=== PATIENT | female | born 1960 | race Asian ===

== ENCOUNTER 2018-12-11 09:08 | Emergency (ER) | payer BC, OTHER ==
[2018-12-11] MEDS ORDERED: Cyclobenzaprine 10 MG TAB ONE (11:23)
[2018-12-11] MEDS ORDERED: Ketorolac Tromethamine 30 MG/ML VIAL ONE (11:23)
--- NOTE | 2018-12-11 11:57 | RAD ---
CHEST TWO VIEWS: History: Chest injury. Comparison: 12-25-16 FINDINGS: Cardiac silhouette is unremarkable. Pulmonary vasculature is slightly engorged. Wide spread radicular nodular interstitial thickening and prominence are similar in appearance to the previous exam. Media stinum is midline with aortic calcification. No confluent airspace consolidation, pneumothorax or ple ural fluid are apparent. IMPRESSION: 1. Widespread interstitial coarsening is stable. 2. Atherosclerosis. 3. No evidence of pneumothorax or other active cardiopulmonary abnormalities. POS: C
== END 2018-12-11 11:55 | disposition home or self-care (01) ==
LOC: ERS 09:08
DX: S20.211A Contusion of right front wall of thorax, initial encounter (principal); E11.9 Type 2 diabetes mellitus without complications; F17.210 Nicotine dependence, cigarettes, uncomplicated; Z79.899 Other long term (current) drug therapy; Z79.84 Long term (current) use of oral hypoglycemic drugs; Z79.82 Long term (current) use of aspirin; W01.0XXA Fall on same level from slipping, tripping and stumbling without subsequent striking against object, initial encounter
CPT/HCPCS: 71046; 93005; 96372; J1885

== ENCOUNTER 2019-10-05 08:58 | Outpatient (CLI) | payer BC ==
--- NOTE | 2019-10-05 09:21 | RAD ---
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 COMPARISON: 12/11/2018 FINDINGS: Heart: Normal cardiac silhouette Aorta: Unremarkable Pulmonary vessels: Normal Costophrenic angles: Costophrenic angles are clear. Lungs: No masses or consolidation. Chronic changes in the lung parenchyma. Pneumothorax: No pneumothorax Osseous structures: No osseous abnormalities IMPRESSION: No acute cardiopulmonary process.
== END 2019-10-05 08:59 | disposition home or self-care (01) ==
LOC: BICRAD 08:58
PROVIDERS: ATTEND Physician Assistant
DX: L40.0 Psoriasis vulgaris (principal); R76.11 Nonspecific reaction to tuberculin skin test without active tuberculosis
CPT/HCPCS: 71046

== ENCOUNTER 2021-06-01 12:18 | Outpatient (CLI) | payer BC | END 2021-06-01 12:19 | disposition home or self-care (01) | LOC: BICRAD 12:18 | PROVIDERS: ATTEND Internal Medicine | DX: R05 Cough (principal); F17.200 Nicotine dependence, unspecified, uncomplicated; R91.8 Other nonspecific abnormal finding of lung field | CPT/HCPCS: 71046 ==

== ENCOUNTER 2022-03-30 11:33 | Outpatient (CLI) | payer BC | END 2022-03-30 11:34 | disposition home or self-care (01) | LOC: BICMAMMO 11:33 | PROVIDERS: ATTEND Internal Medicine | DX: Z12.31 Encounter for screening mammogram for malignant neoplasm of breast (principal) | CPT/HCPCS: 77063; 77067 ==